=== PATIENT | male | born 1980 | race Caucasian/White ===

== ENCOUNTER 2020-12-23 14:09 | Inpatient (IN) | payer SELFPAY ==
[2020-12-23 15:24] LABS: #Basophils 0.1 thou/uL (0.0-0.2); #Eosinphils 0.1 thou/uL (0.0-0.7); #Lymphocytes 1.9 thou/uL (1.20-3.40); #Neutrophils 15.8 thou/uL (1.40-6.50); %Basophils 0.4 % (0.0-1.0); %Eosinophils 0.5 % (0.0-10.0); %Lymphocytes 9.9 % (21.0-51.0); %Monocytes 5.2 % (0.0-10.0); %Neutrophils 83.9 % (42.0-75.0); Hemoglobin 16.5 g/dL (14.0-18.0); Mean Corpuscular HGB CONC 34.2 g/dL (32.0-36.0); Mean Corpuscular Volume 90.4 fL (78.0-98.0); Mean Platelet Volume 8.6 fL (7.4-10.4); Platelet Count 300 thou/uL (130-400); RBC Distribution Width 11.7 % (11.5-14.5); Red Blood Cell (RBC) Count 5.32 mill/uL (4.70-6.10); White Blood Cell (WBC) Count 18.9 thou/uL (4.8-10.8)
[2020-12-23 15:47] LABS: ALT (SGPT) 15 U/L (8-55); AST (SGOT) 18 U/L (5-34); Albumin 4.5 g/dL (3.5-5.0); Alkaline Phosphatase 118 U/L (40-110); Anion Gap 18 mmol/L (10-20); BUN (Urea Nitrogen) 16 mg/dL (8.9-20.6); Bilirubin, Total 0.8 mg/dL (0.2-1.2); Calc. Creatinine Clearance 0 mL/min (70-130); Calcium 10.4 mg/dL (7.8-10.44); Carbon Dioxide 25 mmol/L (22-29); Chloride 95 mmol/L (98-107); Globulin 3.9 g/dL (2.4-3.5); Glucose 342 mg/dL (70-105); Potassium 4.9 mmol/L (3.5-5.1); Protein, Total 8.4 g/dL (6.0-8.3); Sodium 133 mmol/L (136-145)
[2020-12-23] MEDS ORDERED: Insulin Glargine 20 UNITS in Pre-Filled Syringe 1 EACH SC SCH (16:47)
[2020-12-23] MEDS ORDERED: Senokot S 8.6-50 MG TAB PO PRN (16:47)
[2020-12-23] MEDS ORDERED: HYDROcodone/Acetaminophen 5/325 mg Tablet PO PRN (16:47)
[2020-12-23] MEDS ORDERED: Ondansetron ODT 4 MG TAB PO PRN (16:47)
[2020-12-23] MEDS ORDERED: Dextrose 5% in Water 1,000 ML IV PRN (16:47)
[2020-12-23] MEDS ORDERED: Calcium Carbonate 500 MG ChewTAB PO PRN (16:47)
[2020-12-23] MEDS ORDERED: Guaifenesin DM 100-10/5 ML UDCUP PO PRN (16:47)
[2020-12-23] MEDS ORDERED: Piperacillin/Tazobactam 3.375 GM in Sodium Chloride 0.9% 100 ML IVPB SCH ×3 (16:47→21:15)
[2020-12-23] MEDS ORDERED: Bisacodyl 10 MG SUPP PR PRN (16:47)
[2020-12-23] MEDS ORDERED: Dextrose 50% Abboject 50 ML SYRINGE SLOW IVP PRN (16:47)
[2020-12-23] MEDS ORDERED: Morphine 2 MG/ML VIAL SLOW IVP PRN (16:47)
[2020-12-23] MEDS ORDERED: Cefepime 2 GM VIAL ONE (17:09)
[2020-12-23] MEDS ORDERED: Acetaminophen 500 MG TAB ONE (17:16)
[2020-12-23] MEDS ORDERED: Clindamycin/D5W 600 mg/50 ml Premix Bag ONE (18:03)
[2020-12-23] MEDS ORDERED: Vancomycin 1 GM/200 ML BAG ONE (18:03)
[2020-12-23] MEDS ORDERED: Lantus 1000 UNITS/10 ML VIAL SC SCH (18:15)
[2020-12-23 20:39] VITALS: BMI 29.1
[2020-12-23] MEDS ORDERED: busPIRone HCl 5 MG TAB PO SCH (21:15)
[2020-12-23] MEDS: DULoxetine 60 MG CAP PO SCH (22:01)
[2020-12-23] MEDS: Famotidine 20 MG TAB PO SCH (22:03)
[2020-12-23] MEDS: Lisinopril 10 MG TAB PO SCH (22:03)
[2020-12-23] MEDS: Sodium Chloride 0.9% 1,000 ML IV SCH (22:23)
[2020-12-23] MEDS: HumaLOG 300 UNITS/3 ML VIAL SC PRN (23:02)
[2020-12-23] MEDS: Simvastatin 10 MG TAB PO SCH (23:55)
[2020-12-24] MEDS: Vancomycin 1.5 GRAM/300 ML BAG 1.5 GM in Premix Bag 1 BAG IVPB SCH ×3 (00:45→17:40)
[2020-12-24] MEDS: Piperacillin/Tazobactam 3.375 GM in Sodium Chloride 0.9% 100 ML IVPB SCH ×3 (03:25→20:22)
[2020-12-24] MEDS: Sodium Chloride 0.9% 1,000 ML IV SCH (03:28)
[2020-12-24] MEDS ORDERED: DULoxetine 60 MG CAP PO SCH ×2 (09:00)
[2020-12-24] MEDS ORDERED: busPIRone HCl 10 MG TAB PO SCH (09:00)
[2020-12-24 09:03] LABS: Hemoglobin A1c 12.6 % (4.0-6.0)
[2020-12-24 09:04] LABS: #Basophils 0.1 thou/uL (0.0-0.2); #Eosinphils 0.1 thou/uL (0.0-0.7); #Lymphocytes 1.2 thou/uL (1.20-3.40); #Monocytes 0.7 thou/uL (0.11-0.59); #Neutrophils 9.6 thou/uL (1.40-6.50); %Basophils 0.8 % (0.0-1.0); %Eosinophils 0.7 % (0.0-10.0); %Lymphocytes 10.1 % (21.0-51.0); %Monocytes 5.7 % (0.0-10.0); %Neutrophils 82.8 % (42.0-75.0); Hemoglobin 14.6 g/dL (14.0-18.0); Mean Corpuscular HGB CONC 34.4 g/dL (32.0-36.0); Mean Corpuscular Hemoglobin 31.3 pg (27.0-31.0); Mean Platelet Volume 8.5 fL (7.4-10.4); Platelet Count 256 thou/uL (130-400); RBC Distribution Width 11.5 % (11.5-14.5); Red Blood Cell (RBC) Count 4.68 mill/uL (4.70-6.10); White Blood Cell (WBC) Count 11.6 thou/uL (4.8-10.8)
[2020-12-24 09:20] LABS: Anion Gap 16 mmol/L (10-20); BUN (Urea Nitrogen) 13 mg/dL (8.9-20.6); Calc. Creatinine Clearance 152 mL/min (70-130); Calcium 9.6 mg/dL (7.8-10.44); Carbon Dioxide 25 mmol/L (22-29); Chloride 100 mmol/L (98-107); Glucose 297 mg/dL (70-105); Potassium 4.9 mmol/L (3.5-5.1); Sodium 136 mmol/L (136-145)
[2020-12-24] MEDS: Enoxaparin Sodium 40 MG/0.4 ML SYRINGE SC SCH (09:26)
[2020-12-24] MEDS: Lisinopril 10 MG TAB PO SCH ×2 (09:28→20:21)
[2020-12-24] MEDS: Famotidine 20 MG TAB PO SCH ×2 (09:29→20:20)
[2020-12-24] MEDS: busPIRone HCl 5 MG TAB PO SCH ×3 (09:34→20:20)
[2020-12-24] MEDS ORDERED: Morphine 4 MG/ML VIAL SLOW IVP PRN (09:45)
[2020-12-24 12:02] LABS: SARS-CoV-2 PCR by NAA Not Detected (NotDetected)
[2020-12-24] MEDS ORDERED: Midazolam HCl 2 mg/2 ml Vial ONE (13:29)
[2020-12-24] MEDS ORDERED: Fentanyl 100 MCG/2 ML VIAL ONE ×2 (13:29→13:43)
[2020-12-24] MEDS ORDERED: Dexmedetomidine 200 MCG/2 ML VIAL ONE (13:43)
[2020-12-24] MEDS ORDERED: Bupivacaine HCl 0.5%/Epinephrine 1:200,000/PF 30 ml Vial ONE (14:00)
[2020-12-24] MEDS ORDERED: ePHEDrine 50 MG/ML VIAL ONE (14:07)
[2020-12-24] MEDS ORDERED: Lidocaine 1% PF 5 ML VIAL ONE (14:07)
[2020-12-24] MEDS ORDERED: PHENYLEPHRINE-NS 100 MCG/ML 10 ML SYRINGE ONE (14:07)
[2020-12-24] MEDS ORDERED: PROPOFOL 200 MG/20 ML VIAL ONE (14:07)
[2020-12-24] MEDS ORDERED: Ondansetron PF 4 MG/2 ML Vial ONE (14:07)
[2020-12-24] MEDS ORDERED: Ketorolac Tromethamine 30 MG/ML VIAL ONE (14:07)
[2020-12-24] MEDS ORDERED: Dexamethasone 20 MG/5 ML VIAL ONE (14:07)
[2020-12-24] MEDS ORDERED: Zolpidem Tartrate 5 MG TAB PO PRN (16:30)
[2020-12-24] MEDS ORDERED: Ondansetron PF 4 MG/2 ML Vial IVP PRN (16:30)
[2020-12-24] MEDS ORDERED: HYDROcodone/Acetaminophen 5/325 mg Tablet PO PRN (16:30)
[2020-12-24] MEDS ORDERED: Ropivacaine HCl/PF 250 ML in Premix Bag 1 BAG NERVE BLCK SCH (16:30)
[2020-12-24] MEDS ORDERED: Promethazine HCl 25 MG/ML VIAL IM PRN (16:30)
[2020-12-24] MEDS: HumaLOG 300 UNITS/3 ML VIAL SC PRN ×2 (17:47→20:26)
[2020-12-24] MEDS: DULoxetine 60 MG CAP PO SCH (20:20)
[2020-12-24] MEDS: Simvastatin 10 MG TAB PO SCH (20:21)
[2020-12-24] MEDS: Lantus 1000 UNITS/10 ML VIAL SC SCH (21:41)
[2020-12-24] MEDS: Acetaminophen 325 MG TAB PO PRN (23:22)
[2020-12-25] MEDS: Vancomycin 1.5 GRAM/300 ML BAG 1.5 GM in Premix Bag 1 BAG IVPB SCH ×2 (01:41→14:08)
[2020-12-25] MEDS: Piperacillin/Tazobactam 3.375 GM in Sodium Chloride 0.9% 100 ML IVPB SCH ×3 (01:49→17:48)
[2020-12-25] MEDS: HumaLOG 300 UNITS/3 ML VIAL SC PRN ×2 (05:20→12:23)
[2020-12-25] MEDS: Acetaminophen 325 MG TAB PO PRN ×2 (05:23→17:00)
[2020-12-25 07:23] LABS: #Basophils 0.1 thou/uL (0.0-0.2); #Eosinphils 0.1 thou/uL (0.0-0.7); #Monocytes 0.9 thou/uL (0.11-0.59); #Neutrophils 10.5 thou/uL (1.40-6.50); %Basophils 0.7 % (0.0-1.0); %Eosinophils 0.5 % (0.0-10.0); %Lymphocytes 14.6 % (21.0-51.0); %Monocytes 6.8 % (0.0-10.0); %Neutrophils 77.4 % (42.0-75.0); Hemoglobin 13.5 g/dL (14.0-18.0); Mean Corpuscular HGB CONC 35.1 g/dL (32.0-36.0); Mean Corpuscular Hemoglobin 32.1 pg (27.0-31.0); Mean Corpuscular Volume 91.7 fL (78.0-98.0); Mean Platelet Volume 8.4 fL (7.4-10.4); Platelet Count 259 thou/uL (130-400); RBC Distribution Width 11.5 % (11.5-14.5); Red Blood Cell (RBC) Count 4.19 mill/uL (4.70-6.10); White Blood Cell (WBC) Count 13.5 thou/uL (4.8-10.8)
[2020-12-25 07:45] LABS: Anion Gap 12 mmol/L (10-20); BUN (Urea Nitrogen) 16 mg/dL (8.9-20.6); Calc. Creatinine Clearance 153 mL/min (70-130); Calcium 9.2 mg/dL (7.8-10.44); Carbon Dioxide 26 mmol/L (22-29); Chloride 103 mmol/L (98-107); Glucose 260 mg/dL (70-105); Potassium 4.2 mmol/L (3.5-5.1); Sodium 137 mmol/L (136-145)
[2020-12-25] MEDS: Lisinopril 10 MG TAB PO SCH (08:02)
[2020-12-25] MEDS: busPIRone HCl 5 MG TAB PO SCH ×2 (08:02→21:17)
[2020-12-25] MEDS: Famotidine 20 MG TAB PO SCH ×2 (08:02→21:16)
[2020-12-25] MEDS: Enoxaparin Sodium 40 MG/0.4 ML SYRINGE SC SCH (08:03)
[2020-12-25] MEDS ORDERED: Lantus 1000 UNITS/10 ML VIAL SC SCH (09:00)
[2020-12-25 15:10] LABS: Vancomycin, Trough 10.3 ug/mL
[2020-12-25] MEDS: HYDROcodone/Acetaminophen 5/325 mg Tablet PO PRN (18:25)
[2020-12-25] MEDS: DULoxetine 60 MG CAP PO SCH (21:16)
[2020-12-25] MEDS: Lisinopril 20 MG TAB PO SCH (21:16)
[2020-12-25] MEDS: Simvastatin 10 MG TAB PO SCH (21:17)
[2020-12-25] MEDS: Lantus 1000 UNITS/10 ML VIAL SC SCH (21:18)
[2020-12-26] MEDS: VANCOMYCIN 1.75 GM/350 ML BAG 1.75 GM in Premix Bag 1 BAG IVPB SCH ×2 (01:28→14:25)
[2020-12-26] MEDS: Piperacillin/Tazobactam 3.375 GM in Sodium Chloride 0.9% 100 ML IVPB SCH ×3 (03:45→18:03)
[2020-12-26 07:23] LABS: #Basophils 0.1 thou/uL (0.0-0.2); #Eosinphils 0.1 thou/uL (0.0-0.7); #Lymphocytes 1.9 thou/uL (1.20-3.40); #Monocytes 0.7 thou/uL (0.11-0.59); #Neutrophils 6.8 thou/uL (1.40-6.50); %Basophils 1.1 % (0.0-1.0); %Eosinophils 1.3 % (0.0-10.0); %Lymphocytes 19.5 % (21.0-51.0); %Monocytes 7.4 % (0.0-10.0); %Neutrophils 70.8 % (42.0-75.0); Hemoglobin 13.1 g/dL (14.0-18.0); Mean Corpuscular HGB CONC 34.1 g/dL (32.0-36.0); Mean Corpuscular Hemoglobin 31.4 pg (27.0-31.0); Mean Corpuscular Volume 92.1 fL (78.0-98.0); Mean Platelet Volume 8.3 fL (7.4-10.4); Platelet Count 264 thou/uL (130-400); RBC Distribution Width 11.6 % (11.5-14.5); Red Blood Cell (RBC) Count 4.18 mill/uL (4.70-6.10); White Blood Cell (WBC) Count 9.6 thou/uL (4.8-10.8)
[2020-12-26] MEDS: Lantus 1000 UNITS/10 ML VIAL SC SCH ×2 (08:10→22:03)
[2020-12-26] MEDS: Lisinopril 20 MG TAB PO SCH ×2 (08:10→21:51)
[2020-12-26] MEDS: HYDROcodone/Acetaminophen 5/325 mg Tablet PO PRN ×3 (08:11→21:56)
[2020-12-26] MEDS: busPIRone HCl 5 MG TAB PO SCH ×2 (08:11→21:51)
[2020-12-26] MEDS: metFORMIN 500 MG TAB PO SCH ×2 (08:12→18:04)
[2020-12-26] MEDS: Famotidine 20 MG TAB PO SCH ×2 (08:12→21:51)
[2020-12-26] MEDS: Enoxaparin Sodium 40 MG/0.4 ML SYRINGE SC SCH (08:12)
[2020-12-26] MEDS: HumaLOG 300 UNITS/3 ML VIAL SC PRN ×2 (13:01→18:04)
[2020-12-26] MEDS ORDERED: hydrALAZINE 25 MG TAB PO PRN (17:21)
[2020-12-26] MEDS: DULoxetine 60 MG CAP PO SCH (21:51)
[2020-12-26] MEDS: Simvastatin 10 MG TAB PO SCH (21:52)
[2020-12-27] MEDS: Piperacillin/Tazobactam 3.375 GM in Sodium Chloride 0.9% 100 ML IVPB SCH ×3 (01:18→17:34)
[2020-12-27] MEDS: HumaLOG 300 UNITS/3 ML VIAL SC PRN (05:00)
[2020-12-27] MEDS: VANCOMYCIN 1.75 GM/350 ML BAG 1.75 GM in Premix Bag 1 BAG IVPB SCH ×3 (06:19→15:59)
[2020-12-27] MEDS: Enoxaparin Sodium 40 MG/0.4 ML SYRINGE SC SCH (08:31)
[2020-12-27] MEDS: busPIRone HCl 5 MG TAB PO SCH ×2 (08:36→21:24)
[2020-12-27] MEDS: Famotidine 20 MG TAB PO SCH ×2 (08:36→21:23)
[2020-12-27] MEDS: metFORMIN 500 MG TAB PO SCH ×2 (08:36→15:59)
[2020-12-27] MEDS: Lisinopril 20 MG TAB PO SCH ×2 (08:37→21:23)
[2020-12-27] MEDS: Lantus 1000 UNITS/10 ML VIAL SC SCH ×2 (08:37→21:24)
[2020-12-27 08:46] LABS: #Basophils 0.1 thou/uL (0.0-0.2); #Eosinphils 0.2 thou/uL (0.0-0.7); #Monocytes 0.7 thou/uL (0.11-0.59); #Neutrophils 5.9 thou/uL (1.40-6.50); %Basophils 1.4 % (0.0-1.0); %Eosinophils 1.8 % (0.0-10.0); %Lymphocytes 22.4 % (21.0-51.0); %Neutrophils 66.5 % (42.0-75.0); Hemoglobin 13.8 g/dL (14.0-18.0); Mean Corpuscular HGB CONC 34.9 g/dL (32.0-36.0); Mean Corpuscular Hemoglobin 31.8 pg (27.0-31.0); Mean Platelet Volume 8.3 fL (7.4-10.4); Platelet Count 264 thou/uL (130-400); RBC Distribution Width 11.6 % (11.5-14.5); Red Blood Cell (RBC) Count 4.35 mill/uL (4.70-6.10); White Blood Cell (WBC) Count 8.9 thou/uL (4.8-10.8)
[2020-12-27 09:06] LABS: Anion Gap 13 mmol/L (10-20); BUN (Urea Nitrogen) 11 mg/dL (8.9-20.6); Calc. Creatinine Clearance 190 mL/min (70-130); Carbon Dioxide 25 mmol/L (22-29); Chloride 102 mmol/L (98-107); Glucose 175 mg/dL (70-105); Potassium 3.9 mmol/L (3.5-5.1); Sodium 136 mmol/L (136-145)
[2020-12-27] MEDS: HYDROcodone/Acetaminophen 5/325 mg Tablet PO PRN ×3 (12:14→21:28)
[2020-12-27] MEDS ORDERED: Amlodipine 5 MG TAB PO SCH (16:45)
[2020-12-27 16:56] LABS: Vancomycin, Trough 13.6 ug/mL
[2020-12-27] MEDS: DULoxetine 60 MG CAP PO SCH (21:23)
[2020-12-27] MEDS: Simvastatin 10 MG TAB PO SCH (21:23)
[2020-12-28] MEDS: Piperacillin/Tazobactam 3.375 GM in Sodium Chloride 0.9% 100 ML IVPB SCH ×4 (01:43→17:10)
[2020-12-28] MEDS: VANCOMYCIN 2 GRAM/400 ML BAG 2 GM in Premix Bag 1 BAG IVPB SCH ×2 (05:04→15:57)
[2020-12-28] MEDS: HumaLOG 300 UNITS/3 ML VIAL SC PRN (06:11)
[2020-12-28] MEDS: Enoxaparin Sodium 40 MG/0.4 ML SYRINGE SC SCH (08:00)
[2020-12-28] MEDS: Lisinopril 20 MG TAB PO SCH (08:01)
[2020-12-28] MEDS: busPIRone HCl 5 MG TAB PO SCH (08:01)
[2020-12-28] MEDS: Famotidine 20 MG TAB PO SCH (08:01)
[2020-12-28] MEDS: metFORMIN 500 MG TAB PO SCH ×2 (08:01→15:56)
[2020-12-28] MEDS: Lantus 1000 UNITS/10 ML VIAL SC SCH (08:02)
[2020-12-28] MEDS: HYDROcodone/Acetaminophen 5/325 mg Tablet PO PRN ×3 (08:04→15:57)
[2020-12-28] MEDS ORDERED: Amlodipine 5 MG TAB PO SCH (09:00)
[2020-12-28 15:48] VITALS: BP 135/90; TEMP 98.7
== END 2020-12-28 17:45 | disposition home or self-care (01) | DRG 617 ==
LOC: ERS 14:09 → T4-B 16:30
PROVIDERS: ADMIT Internal Medicine; ATTEND Internal Medicine
PROC: 0Y6J0Z1 Detachment at Left Lower Leg, High, Open Approach (ICD-10-PCS; principal; 2020-12-24)
DX: E11.69 Type 2 diabetes mellitus with other specified complication (principal); M86.8X7 Other osteomyelitis, ankle and foot; L97.426 Non-pressure chronic ulcer of left heel and midfoot with bone involvement without evidence of necrosis; Z20.822 Contact with and (suspected) exposure to COVID-19; B96.5 Pseudomonas (aeruginosa) (mallei) (pseudomallei) as the cause of diseases classified elsewhere; B95.61 Methicillin susceptible Staphylococcus aureus infection as the cause of diseases classified elsewhere; I10 Essential (primary) hypertension; E78.5 Hyperlipidemia, unspecified; E11.621 Type 2 diabetes mellitus with foot ulcer; E11.42 Type 2 diabetes mellitus with diabetic polyneuropathy; E11.610 Type 2 diabetes mellitus with diabetic neuropathic arthropathy; M79.7 Fibromyalgia; F17.210 Nicotine dependence, cigarettes, uncomplicated; F41.9 Anxiety disorder, unspecified; F39 Unspecified mood [affective] disorder; E11.65 Type 2 diabetes mellitus with hyperglycemia; Z88.2 Allergy status to sulfonamides; Z79.899 Other long term (current) drug therapy; Z79.84 Long term (current) use of oral hypoglycemic drugs; Z82.3 Family history of stroke; Z83.3 Family history of diabetes mellitus; Z91.14 Patient's other noncompliance with medication regimen
CPT/HCPCS: 36415; 36416; 80048; 80053; 80202; 83036; 85025; 85652; 86140; 87070; 87076; 87077; 87186; 87205; 88307; 93005; 96365; 96375; J0692; J1100; J1650; J1815; J1885; J2250; J2270; J2405; J2543; J2704; J3010; J3370; J3490; J7050; Q0162; U0003; U0005